=== PATIENT | female | born 1980 | race Caucasian/White ===

== ENCOUNTER → 2016-10-14 | Outpatient (CLI) | payer OTHER | LOC: RAD 09:38 | DX: M54.5 Low back pain (principal); N20.0 Calculus of kidney; Z88.6 Allergy status to analgesic agent | CPT/HCPCS: 72110 ==

== ENCOUNTER 2021-03-01 14:47 | Emergency (ER) | payer OTHER ==
[~2021-03-01 14:47] MED LIST: BENTYL 20MG TAB20 MG PO; ZOFRAN4 MG PO
[2021-03-01 16:28] LABS: HEMOGLOBIN 14.5 gm/dl (12.3-15.3); RED BLOOD COUNT 4.56 M/UL (4.00-5.10); WHITE BLOOD COUNT 6.2 K/UL (4.5-11.0)
[2021-03-01 16:42] LABS: BUN/CREATININE RATIO 5 (0-10)
== END 2021-03-01 19:23 | disposition home or self-care (01) ==
LOC: ER1 14:47
PROVIDERS: Physician Assistant Medical
DX: R07.9 Chest pain, unspecified (principal); R53.83 Other fatigue; Z88.8 Allergy status to other drugs, medicaments and biological substances; F17.290 Nicotine dependence, other tobacco product, uncomplicated
CPT/HCPCS: 71045; 80053; 82550; 82553; 83874; 84484; 85025; 85379; 93005; 99285